=== PATIENT | male | born 1980 | race African-American/Black ===

== ENCOUNTER 2017-02-14 21:35 | Inpatient (IN) | payer MEDICARE ==
--- NOTE | 2017-02-14 22:43 | ED ---
Psych HPI - General Chief Complaint: Psychiatric Symptoms Stated Complaint: Mental Health Time Seen by Provider: 02/14/17 21:35 Source: patient, police, RN notes reviewed Mode of arrival: EMS - History of Present Illness Initial Comments: this is a 36-year-old male who was brought in by police for evaluation of abnormal behavior. He is brought in by police for erratic driving. The patient was confused and had no idea where he was or how he got here. He is from the [place] area. Please apparently contacted the patient's family who stated he is probably off his medications again. Patient was demonstrating flight of ideas some early threatening responses. No reports of fevers chills nausea vomiting sweats or trauma. A petition was filed by the police. MD Complaint: altered mental status - Related Data Allergies Allergy/AdvReac Type Severity Reaction Status Date / Time No Known Allergies Allergy Verified 02/14/17 21:41 Review of Systems ROS Statement: Those systems with pertinent positive or pertinent negative responses have been documented in the HPI. ROS Other: All systems not noted in ROS Statement are negative. Limitations: ROS unobtainable due to patients medical condition Past Medical History Past Medical History: Unable to Obtain History of Any Multi-Drug Resistant Organisms: Unobtainable Past Surgical History: Unable to Obtain Past Psychological History: Unable to Obtain Smoking Status: Unknown if ever smoked Past Alcohol Use History: Unable to Obtain Past Drug Use History: Unable to Obtain General Exam - General Exam Comments Initial Comments: this is a well-developed well-nourished obese appearing male he is demonstrated flight of ideas and does not give a cogent answers to questions Limitations: no limitations General appearance: alert, anxious Head exam: Present: atraumatic, normocephalic, normal inspection Eye exam: Present: normal appearance, PERRL, EOMI. Absent: scleral icterus, conjunctival injection, periorbital swelling ENT exam: Present: normal exam, mucous membranes moist Neck exam: Present: normal inspection. Absent: tenderness, meningismus, lymphadenopathy Respiratory exam: Present: normal lung sounds bilaterally. Absent: respiratory distress, wheezes, rales, rhonchi, stridor Cardiovascular Exam: Present: regular rate, normal rhythm, normal heart sounds. Absent: systolic murmur, diastolic murmur, rubs, gallop, clicks GI/Abdominal exam: Present: soft, normal bowel sounds. Absent: distended, tenderness, guarding, rebound, rigid Extremities exam: Present: normal inspection, full ROM, normal capillary refill. Absent: tenderness, pedal edema, joint swelling, calf tenderness Back exam: Present: normal inspection Neurological exam: Present: alert, altered, CN II-XII intact, normal gait. Absent: motor sensory deficit Psychiatric exam: Present: anxious, manic, other (patient is demonstrating flight of ideas) Skin exam: Present: warm, dry, intact, normal color. Absent: rash Course Vital Signs 02/14/17 21:37 Temperature 99.1 F Pulse Rate 95 Respiratory 16 Rate Blood Pressure 146/96 O2 Sat by Pulse 97 Oximetry - Reevaluation(s) Reevaluation #1: 02/15/17 00:18 I did fill out a physician clinical certification on the patient. The patient' s care will be endorsed to Dr. Morataya who will make the final disposition Medical Decision Making - Lab Data Result diagrams: 02/14/17 23:55 Lab Results 02/14/17 02/14/17 Range/Units 23:00 23:55 WBC 10.5 (3.8-10.6) k/uL RBC 4.95 (4.30-5.90) m/uL Hgb 14.8 (13.0-17.5) gm/dL Hct 42.5 (39.0-53.0) % MCV 85.9 (80.0-100.0) fL MCH 29.9 (25.0-35.0) pg MCHC 34.8 (31.0-37.0) g/dL RDW 13.0 (11.5-15.5) % Plt Count 151 (150-450) k/uL Neutrophils % 59 % Lymphocytes % 27 % Monocytes % 5 % Eosinophils % 7 % Basophils % 0 % Neutrophils # 6.2 (1.3-7.7) k/uL Lymphocytes # 2.8 (1.0-4.8) k/uL Monocytes # 0.5 (0-1.0) k/uL Eosinophils # 0.8 H (0-0.7) k/uL Basophils # 0.0 (0-0.2) k/uL Urine Opiates Screen Not Detected (NotDetected) Ur Oxycodone Screen Not Detected (NotDetected) Urine Methadone Screen Not Detected (NotDetected) Ur Propoxyphene Screen Not Detected (NotDetected) Ur Barbiturates Screen Not Detected (NotDetected) U Tricyclic Antidepress Not Detected (NotDetected) Ur Phencyclidine Scrn Not Detected (NotDetected) Ur Amphetamines Screen Not Detected (NotDetected) U Methamphetamines Scrn Not Detected (NotDetected) U Benzodiazepines Scrn Not Detected (NotDetected) Urine Cocaine Screen Not Detected (NotDetected) U Marijuana (THC) Screen Detected H (NotDetected) Disposition Clinical Impression: Acute psychosis Referrals: None,Stated [Primary Care Provider] - 1-2 days
[2017-02-15 00:06] LABS: Basophils % (A) 0 %; CH 29.1; Eosinophils # (A) 0.8 k/uL (0-0.7); Eosinophils % (A) 7 %; HCT 42.5 % (39.0-53.0); HDW 2.46; HGB 14.8 gm/dL (13.0-17.5); Luc % (Auto) 2; Lymphocytes # (A) 2.8 k/uL (1.0-4.8); Lymphocytes % (A) 27 %; MCH 29.9 pg (25.0-35.0); MCHC 34.8 g/dL (31.0-37.0); MCV 85.9 fL (80.0-100.0); Mean Platelet Volume 9.7; Monocytes # (A) 0.5 k/uL (0-1.0); Monocytes % (A) 5 %; Neutrophils # (A) 6.2 k/uL (1.3-7.7); Neutrophils % (A) 59 %; RBC 4.95 m/uL (4.30-5.90); WBC 10.5 k/uL (3.8-10.6); WBC (Perox) 9.86
[2017-02-15 00:18] LABS: ALT 45 U/L (21-72); AST 36 U/L (17-59); Alkaline Phosphatase 93 U/L (38-126); Anion Gap 16 mmol/L; Blood Urea Nitrogen 22 mg/dL (9-20); Calcium 9.8 mg/dL (8.4-10.2); Carbon Dioxide 23 mmol/L (22-30); Chloride 101 mmol/L (98-107); Glucose 120 mg/dL (74-99); Non-African American GFR(MDRD) 53 (>60 ml/min/1.73 sqM); Potassium 4.4 mmol/L (3.5-5.1); Sodium 140 mmol/L (137-145); Total Bilirubin 1.5 mg/dL (0.2-1.3)
[2017-02-15] MEDS ORDERED: HALOPERIDOL LACTATE 5 MG/ML 1 ML VIAL IM STA (07:06)
[2017-02-15] MEDS ORDERED: LORazepam 2 MG/ML SYRINGE IM STA (07:07)
[2017-02-15] MEDS ORDERED: MAG HYDROX/AL HYDROX/SIMETH 30 ML CUP PO PRN (16:02)
[2017-02-15] MEDS ORDERED: LORazepam 1 MG TAB PO PRN (16:02)
[2017-02-15] MEDS ORDERED: MAGNESIUM HYDROXIDE 2,400 MG/10 ML CUP PO PRN (16:02)
[2017-02-15] MEDS ORDERED: ACETAMINOPHEN TAB 325 MG TAB PO PRN (16:02)
[2017-02-15] MEDS ORDERED: LORazepam 2 MG/ML SYRINGE IM PRN (16:05)
[2017-02-15] MEDS: NICOTINE 14MG/24HR PATCH TRANSDERM SCH (16:17)
[2017-02-15] MEDS ORDERED: ZIPRASIDONE 20 MG VIAL IM ONE (16:35)
[2017-02-15] MEDS ORDERED: WATER FOR INJECTION, STERILE 10 ML IV ONE (16:35)
[2017-02-15] MEDS: ZIPRASIDONE 20 MG VIAL IM PRN (16:41)
[2017-02-15] MEDS: PROPRANOLOL 10 MG TAB PO SCH (21:06)
[2017-02-16] MEDS ORDERED: WATER FOR INJECTION, STERILE 10 ML IV ONE (08:09)
[2017-02-16] MEDS ORDERED: ZIPRASIDONE 20 MG VIAL IM ONE (08:09)
[2017-02-16] MEDS: ZIPRASIDONE 20 MG VIAL IM PRN (08:10)
[2017-02-16] MEDS ORDERED: LORazepam 2 MG/ML SYRINGE IM PRN (08:51)
[2017-02-16] MEDS ORDERED: PALIPERIDONE 3 MG TAB.ER.24 PO SCH (09:00)
[2017-02-16] MEDS ORDERED: ZIPRASIDONE 20 MG VIAL IM PRN ×2 (09:02→13:48)
--- NOTE | 2017-02-16 09:02 | P.HP ---
Psychiatric H&P - . H&P Date: 02/16/17 History & Physical: DATE OF SERVICE: 02/16/2017 IDENTIFYING DATA: This patient is a 36-year-old single -[place] male who was admitted to the mental health unit through emergency room after being brought in by the police on a petition.. HISTORY OF PRESENT ILLNESS: The patient patient was noted to be driving erratically police stopped him, patient was unable to make any sense they petitioned and brought him in. He continued to have difficulty in the emergency room unable to make sense people were reporting that he was trying to hand something to them but there was nothing in his hand. He was speaking about Arjun can candy covered raindrops. He was eventually admitted to our unit after there were no beds found in [facility]. Patient has a history of schizophrenia versus schizoaffective disorder bipolar type, father reports that he has been off of his meds for 2 months now. Father also reported that he had taken a vacation and gone to [place] and was also admitted there. Father reports patient takes Depakote amlodipine and an injection. Patient has already required 2 doses of Geodon 20 mg IM and 2 doses of Ativan 1 mg each. Today he came out of his room with soap on his face stating that he is God, he was in the dining christian and he was observed by junior technical writer that he was talking loudly but not threatening anybody. PAST PSYCHIATRIC HISTORY: Father reports multiple psychiatric admissions, unknown of all the medications that patient has been tried on.. PAST MEDICAL HISTORY: Obesity. ALLERGIES: [No known drug allergies]. CHEMICAL DEPENDENCY HISTORY: Unknown at this time patient is unable to give history. FAMILY PSYCHIATRIC HISTORY: Unknown at this time patient is unable to give history. FAMILY CHEMICAL DEPENDENCY HISTORY: Unknown. LEGAL HISTORY: Other reports there are no legal problems. 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 He currently lives with his father in [place]. He will return to live with his father once he is stable. MENTAL STATUS EXAM: Limited mental status exam patient is awake and alert and oriented to person only. Speech is loud increased rate production, pressured speech. Patient is exhibiting loose association, and flight of ideas. His thought process is tangential at best. Patient is grandiose. No suicidal ideation STRENGTHS: Has housing, father is supportive.. WEAKNESSES: Noncompliance with care. IMPRESSIONS: Patient with history of schizophrenia versus schizoaffective disorder bipolar, with this presentation today he is. Appearing schizoaffective with bipolar. He is psychotic, delusional, grandiose. No evidence that he is suicidal, but due to his psychosis and grandiosity he is a danger to self and others inadvertently Schizoaffective disorder, bipolar, MRE manic Noncompliance with care Cannabis use disorder, moderate PLAN: Continue inpatient psychiatric admission, for safety and for treatment. Will restart by mouth in vague, and verified that it was in vague that he was receiving before. It's been more than a month so if in vague it is the medication will need to restart with a loading dose. Increase the when necessary dose of Ativan to 2 mg every 4 for agitation Continue to provide when necessary Geodon until patient is under control. Restart Depakote. Social work to begin process of discharge planning and outpatient care with father. At present you therapy is not recommended.. Allergies Allergy/AdvReac Type Severity Reaction Status Date / Time No Known Allergies Allergy Verified 02/15/17 09:36 Vital Signs Temp 97.7 F 02/16/17 06:39 Pulse 77 02/16/17 06:39 Resp 22 02/16/17 06:39 BP 135/80 02/16/17 06:39 Pulse Ox 97 02/15/17 16:21 Laboratory Last Values WBC 10.5 k/uL (3.8-10.6) 02/14/17 23:55 RBC 4.95 m/uL (4.30-5.90) 02/14/17 23:55 Hgb 14.8 gm/dL (13.0-17.5) 02/14/17 23:55 Hct 42.5 % (39.0-53.0) 02/14/17 23:55 MCV 85.9 fL (80.0-100.0) 02/14/17 23:55 MCH 29.9 pg (25.0-35.0) 02/14/17 23:55 MCHC 34.8 g/dL (31.0-37.0) 02/14/17 23:55 RDW 13.0 % (11.5-15.5) 02/14/17 23:55 Plt Count 151 k/uL (150-450) 02/14/17 23:55 Neutrophils % 59 % 02/14/17 23:55 Lymphocytes % 27 % 02/14/17 23:55 Monocytes % 5 % 02/14/17 23:55 Eosinophils % 7 % 02/14/17 23:55 Basophils % 0 % 02/14/17 23:55 Neutrophils # 6.2 k/uL (1.3-7.7) 02/14/17 23:55 Lymphocytes # 2.8 k/uL (1.0-4.8) 02/14/17 23:55 Monocytes # 0.5 k/uL (0-1.0) 02/14/17 23:55 Eosinophils # 0.8 k/uL (0-0.7) H 02/14/17 23:55 Basophils # 0.0 k/uL (0-0.2) 02/14/17 23:55 Sodium 140 mmol/L (137-145) 02/14/17 23:55 Potassium 4.4 mmol/L (3.5-5.1) 02/14/17 23:55 Chloride 101 mmol/L (98-107) 02/14/17 23:55 Carbon Dioxide 23 mmol/L (22-30) 02/14/17 23:55 Anion Gap 16 mmol/L 02/14/17 23:55 BUN 22 mg/dL (9-20) H 02/14/17 23:55 Creatinine 1.50 mg/dL (0.66-1.25) H 02/14/17 23:55 Est GFR (MDRD) Af Amer >60 (>60 ml/min/1.73 sqM) 02/14/17 23:55 Est GFR (MDRD) Non-Af 53 (>60 ml/min/1.73 sqM) 02/14/17 23:55 Glucose 120 mg/dL (74-99) H 02/14/17 23:55 Calcium 9.8 mg/dL (8.4-10.2) 02/14/17 23:55 Total Bilirubin 1.5 mg/dL (0.2-1.3) H 02/14/17 23:55 AST 36 U/L (17-59) 02/14/17 23:55 ALT 45 U/L (21-72) 02/14/17 23:55 Alkaline Phosphatase 93 U/L (38-126) 02/14/17 23:55 Total Protein 8.0 g/dL (6.3-8.2) 02/14/17 23:55 Albumin 5.2 g/dL (3.5-5.0) H 02/14/17 23:55 Urine Opiates Screen Not Detected (NotDetected) 02/14/17 23:00 Ur Oxycodone Screen Not Detected (NotDetected) 02/14/17 23:00 Urine Methadone Screen Not Detected (NotDetected) 02/14/17 23:00 Ur Propoxyphene Screen Not Detected (NotDetected) 02/14/17 23:00 Ur Barbiturates Screen Not Detected (NotDetected) 02/14/17 23:00 Valproic Acid <10.0 ug/mL 02/14/17 23:55 U Tricyclic Antidepress Not Detected (NotDetected) 02/14/17 23:00 Ur Phencyclidine Scrn Not Detected (NotDetected) 02/14/17 23:00 Ur Amphetamines Screen Not Detected (NotDetected) 02/14/17 23:00 U Methamphetamines Scrn Not Detected (NotDetected) 02/14/17 23:00 U Benzodiazepines Scrn Not Detected (NotDetected) 02/14/17 23:00 Urine Cocaine Screen Not Detected (NotDetected) 02/14/17 23:00 U Marijuana (THC) Screen Detected (NotDetected) H 02/14/17 23:00 02/16/17 08:52
[2017-02-16] MEDS: NICOTINE 14MG/24HR PATCH TRANSDERM SCH (09:28)
[2017-02-16] MEDS: PROPRANOLOL 10 MG TAB PO SCH ×2 (09:28→21:44)
[2017-02-16 10:05] LABS: Basophils # (A) 0.1 k/uL (0-0.2); Basophils % (A) 1 %; CH 28.8; CHCM 33.9; Eosinophils # (A) 0.5 k/uL (0-0.7); Eosinophils % (A) 7 %; HCT 41.2 % (39.0-53.0); HDW 2.59; HGB 14.4 gm/dL (13.0-17.5); Luc # (Auto) 0.15; Luc % (Auto) 2; Lymphocytes % (A) 29 %; MCH 29.7 pg (25.0-35.0); MCHC 34.8 g/dL (31.0-37.0); MCV 85.3 fL (80.0-100.0); Mean Platelet Volume 9.7; Monocytes # (A) 0.5 k/uL (0-1.0); Monocytes % (A) 8 %; Neutrophils # (A) 3.6 k/uL (1.3-7.7); Neutrophils % (A) 54 %; RBC 4.83 m/uL (4.30-5.90); RDW 12.7 % (11.5-15.5); WBC 6.8 k/uL (3.8-10.6); WBC (Perox) 6.56
[2017-02-16 10:21] LABS: ALT 38 U/L (21-72); AST 34 U/L (17-59); Alkaline Phosphatase 77 U/L (38-126); Anion Gap 11 mmol/L; Blood Urea Nitrogen 18 mg/dL (9-20); Calcium 9.8 mg/dL (8.4-10.2); Carbon Dioxide 27 mmol/L (22-30); Chloride 102 mmol/L (98-107); Glucose 93 mg/dL (74-99); Non-African American GFR(MDRD) >60 (>60 ml/min/1.73 sqM); Potassium 4.1 mmol/L (3.5-5.1); Sodium 140 mmol/L (137-145); Total Bilirubin 0.8 mg/dL (0.2-1.3); Total Protein 7.7 g/dL (6.3-8.2)
--- NOTE | 2017-02-16 13:04 | P.PN ---
Progress Note - Text Patient is inappropriate for medical evaluation at this point.
[2017-02-16] MEDS ORDERED: DIAZEPAM 5 MG/ML 2 ML SYRINGE IM STA (15:02)
[2017-02-16] MEDS ORDERED: OLANZapine ODT 10 MG TAB PO STA (19:07)
[2017-02-16] MEDS ORDERED: DIVALPROEX ER 500 MG TAB.ER.24H PO SCH (21:00)
[2017-02-16] MEDS ORDERED: DIAZEPAM 5 MG/ML 2 ML SYRINGE IM ONE (21:11)
[2017-02-16] MEDS ORDERED: HALOPERIDOL LACTATE 5 MG/ML 1 ML VIAL IM STA (21:11)
[2017-02-17] MEDS ORDERED: DIAZEPAM 5 MG/ML 2 ML SYRINGE IM PRN
[2017-02-17] MEDS ORDERED: PALIPERIDONE IM 234 MG/1.5 ML SYG IM STA (07:49)
--- NOTE | 2017-02-17 07:56 | P.PN ---
Progress Note - Text INTERVERAL HISTORY: Received report from RN, patient received Haldol 5 mg IM, Valium 10 mg IM at 9 PM, he slept for almost 6 hours, he he woke around 3 and began to agitate flexing muscles being loud, Haldol 5 mg IM, Valium 10 mg IM given at 357 patient went back to bed and slept until 6:30. Was not loud or threatening but he was psychotic RN stated he was not making any sense. MENTAL STATUS EXAM: Limited mental status exam patient is awake and alert and oriented to person only. Speech is normal volume, pressured,+ loose association , and flight of ideas. His thought process is tangential at best. Patient is grandiose. No suicidal ideation IMPRESSIONS: Patient with schizoaffective disorder bipolar, manic with psychosis. Has been needing medication restraint. Continue psychotic, delusional, grandiose. No evidence that he is suicidal, but due to his psychosis and grandiosity he is a danger to self and others inadvertently Schizoaffective disorder, bipolar, MRE manic, psychotic Noncompliance with care Cannabis use disorder, moderate PLAN:Continue inpatient psychiatric hospitalization. EKG done, due to the amount of anitpsychotics given IM. Will increase Invega by mouth 9 mg today, begin Invega sustena today, add kody
[2017-02-17] MEDS: NICOTINE 14MG/24HR PATCH TRANSDERM SCH (09:15)
[2017-02-17] MEDS: PROPRANOLOL 10 MG TAB PO SCH ×2 (09:15→20:26)
[2017-02-17] MEDS: PALIPERIDONE 3 MG TAB.ER.24 PO SCH (09:15)
[2017-02-17] MEDS: BENZTROPINE 2 MG/2 ML AMP IM SCH ×2 (09:16→20:26)
[2017-02-17] MEDS ORDERED: DIVALPROEX ER 500 MG TAB.ER.24H PO ONE (12:15)
[2017-02-17] MEDS ORDERED: LORazepam 2 MG/ML SYRINGE IM PRN (15:57)
[2017-02-17] MEDS ORDERED: HALOPERIDOL LACTATE 5 MG/ML 1 ML VIAL IM PRN ×2 (15:59)
--- NOTE | 2017-02-17 19:34 | P.CONS ---
History of Present Illness - Reason for Consult Consult date: 02/17/17 Medical evaluation - History of Present Illness This is a 36-year-old gentleman with no current PCP, when he was inquired about who his regular doctor is he said he is his own PCP, apparently he also shown that he has an M.D. in the [employer] 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 Patient was revisited today as during his admission he was inappropriate for medical interview. Patient has police escort during my medical interview with him and he is pleasant he has racing thoughts and rapid speech patient denies any physical elements, not on any maintenance medications for his medical problems in the past, however he he mentions asthma and hypertension Review of Systems Constitutional: Reports as per HPI, Denies anorexia, Denies chills, Denies chronic headaches, Denies chronic pain, Denies daytime sleepiness, Denies fatigue, Denies fever, Denies lethargy, Denies malaise, Denies night sweats, Denies poor appetite, Denies sweats, Denies weakness, Denies weight gain, Denies weight loss Ears, nose, mouth and throat: Reports as per HPI, Denies ant. neck pain, Denies bleeding gums, Denies dental pain, Denies dysphagia, Denies epistaxis, Denies headache, Denies hoarseness, Denies mouth pain, Denies nasal congestion, Denies nasal discharge, Denies neck fullness/pressure, Denies neck lump, Denies nose pain, Denies odynophagia, Denies post-nasal drip, Denies sinus pain, Denies sinus pressure, Denies swelling in mouth, Denies swelling in throat, Denies sore throat, Denies vertigo, Denies voice changes Cardiovascular: Reports as per HPI, Denies chest pain, Denies claudication, Denies decreased exercise tolerance, Denies dyspnea on exertion, Denies edema, Denies high blood pressure, Denies irregular heart beat, Denies leg edema, Denies lightheadedness, Denies orthopnea, Denies palpitations, Denies paroxysmal nocturnal dyspnea, Denies phlebitis, Denies rapid heart beat, Denies shortness of breath, Denies syncope Respiratory: Reports as per HPI, Denies congestion, Denies cough, Denies cough with sputum, Denies dyspnea, Denies excessive sputum, Denies hemoptysis, Denies home oxygen, Denies pain, Denies pain on inspiration, Denies pleurisy, Denies respiratory infections, Denies sleep apnea, Denies snoring, Denies wheezing Genitourinary: Reports as per HPI, Denies decreased libido, Denies difficulties fathering child, Denies discharge, Denies dysuria, Denies erectile dysfunction, Denies flank pain, Denies genital pain, Denies genital sores, Denies hematuria, Denies impotence, Denies incontinence, Denies kidney stones, Denies nocturia, Denies polyuria, Denies testicular lump, Denies testicular pain, Denies urinary frequency, Denies urinary hesitancy, Denies urinary retention Musculoskeletal: Reports as per HPI, Denies arm numbness/tingling, Denies atrophy, Denies fractures, Denies frequent falls, Denies gait dysfunction, Denies hot joints, Denies leg numbness/tingling, Denies limitation of motion, Denies loss of height, Denies low back pain, Denies morning stiffness, Denies muscle cramps, Denies muscle weakness, Denies myalgias, Denies neck pain, Denies neck stiffness, Denies prior amputations, Denies redness of joints, Denies shooting arm pain, Denies shooting leg pain Integumentary: Reports as per HPI, Denies acne, Denies boils, Denies brittle nails, Denies change in hair/nails, Denies color changes, Denies darkening of skin, Denies depigmentation, Denies dryness, Denies foot/leg ulcers, Denies growths, Denies hirsutism, Denies lesions, Denies onychomycosis, Denies pruritus , Denies rash, Denies sores, Denies striae, Denies unusual bruising, Denies wounds Neurological: Reports as per HPI, Denies aphasia, Denies ataxia, Denies balance difficulties, Denies burning pain, Denies change in mentation, Denies change in smell/taste, Denies change in speech, Denies confusion, Denies convulsions, Denies double vision, Denies gait dysfunction, Denies head injury, Denies headaches, Denies hearing difficulties, Denies lack of coordination, Denies loss of vision, Denies memory loss, Denies migraines, Denies motor disturbance, Denies numbness, Denies paralysis, Denies paresthesias, Denies seizures, Denies sensory deficit, Denies spasticity, Denies syncope, Denies tic, Denies tingling , Denies transient paralysis, Denies tremors, Denies vertigo, Denies weakness, Denies visual changes Psychiatric: Reports as per HPI, Reports change in sleep habits, Reports disorientation, Reports hallucinations, Reports irritability, Reports mood swings, Reports sleep disturbances Endocrine: Reports as per HPI, Denies cold intolerance, Denies deepening of the voice, Denies excessive sweating, Denies excessive thirst, Denies fatigue, Denies flushing, Denies heat intolerance, Denies high blood sugars, Denies increase in ring/shoe/hat size, Denies low blood sugars, Denies nocturia, Denies palpitations, Denies polydipsia, Denies polyphagia, Denies polyuria, Denies proptosis, Denies recent glucocorticoid use, Denies thyroid mass, Denies weight change Hematologic/Lymphatic: Reports as per HPI Allergic/Immunologic: Reports as per HPI, Denies allergic rhinitis, Denies anaphylaxis, Denies angioedema, Denies gluten intolerance, Denies persistent infections, Denies seasonal allergies, Denies urticaria, Denies wheezing Past Medical History Past Medical History: Asthma History of Any Multi-Drug Resistant Organisms: Unobtainable Past Surgical History: Orthopedic Surgery (14 and 19. After laceration right side) Past Anesthesia/Blood Transfusion Reactions: No Reported Reaction Past Psychological History: Unable to Obtain Smoking Status: Never smoker (However he smokes marijuana) Past Alcohol Use History: None Reported Past Drug Use History: Marijuana - Past Family History Father Family Medical History: No Reported History Mother Family Medical History: Coronary Artery Disease (CAD), Hypertension Brother(s) Family Medical History: Coronary Artery Disease (CAD) Sister(s) Family Medical History: No Reported History Medications and Allergies Home Medications Medication Instructions Recorded Confirmed Type Propranolol [Inderal] 10 mg PO BID 02/15/17 02/15/17 History Allergies Allergy/AdvReac Type Severity Reaction Status Date / Time No Known Allergies Allergy Verified 02/15/17 09:36 Physical Exam Vitals: Vital Signs Temp Pulse Pulse Pulse Resp BP BP 02/17/17 09:29 89 20 132/72 02/17/17 03:50 97.6 F 71 16 144/74 02/16/17 22:48 92 02/16/17 21:40 88 137/66 02/16/17 16:02 99 16 100/54 BP Pulse Ox 02/17/17 09:29 02/17/17 03:50 95 02/16/17 22:48 128/62 02/16/17 21:40 02/16/17 16:02 - Constitutional General appearance: cooperative, no acute distress - EENT Eyes: anicteric sclerae, EOMI, dentition normal, normal appearance - Neck Neck: no lymphadenopathy, normal ROM, no other, no rigidity, no stridor, no thyromegaly - Respiratory Respiratory: bilateral: CTA - Cardiovascular Rhythm: regular Heart sounds: normal: S1, S2 Abnormal Heart Sounds: no systolic murmur, no diastolic murmur, no rub, no S3 Gallop, no S4 Gallop, no click, no other - Gastrointestinal General gastrointestinal: normal bowel sounds, soft - Integumentary Integumentary: normal, normal turgor - Neurologic Neurologic: CNII-XII intact - Musculoskeletal Musculoskeletal: gait normal, strength equal bilaterally - Psychiatric Psychiatric: A&O x's 3 Results CBC & Chem 7: 02/16/17 09:47 02/16/17 09:47 Labs: Laboratory Results WBC 6.8 k/uL (3.8-10.6) 02/16/17 09:47 RBC 4.83 m/uL (4.30-5.90) 02/16/17 09:47 Hgb 14.4 gm/dL (13.0-17.5) 02/16/17 09:47 Hct 41.2 % (39.0-53.0) 02/16/17 09:47 MCV 85.3 fL (80.0-100.0) 02/16/17 09:47 MCH 29.7 pg (25.0-35.0) 02/16/17 09:47 MCHC 34.8 g/dL (31.0-37.0) 02/16/17 09:47 RDW 12.7 % (11.5-15.5) 02/16/17 09:47 Plt Count 151 k/uL (150-450) 02/16/17 09:47 Neutrophils % 54 % 02/16/17 09:47 Lymphocytes % 29 % 02/16/17 09:47 Monocytes % 8 % 02/16/17 09:47 Eosinophils % 7 % 02/16/17 09:47 Basophils % 1 % 02/16/17 09:47 Neutrophils # 3.6 k/uL (1.3-7.7) 02/16/17 09:47 Lymphocytes # 2.0 k/uL (1.0-4.8) 02/16/17 09:47 Monocytes # 0.5 k/uL (0-1.0) 02/16/17 09:47 Eosinophils # 0.5 k/uL (0-0.7) 02/16/17 09:47 Basophils # 0.1 k/uL (0-0.2) 02/16/17 09:47 Sodium 140 mmol/L (137-145) 02/16/17 09:47 Potassium 4.1 mmol/L (3.5-5.1) 02/16/17 09:47 Chloride 102 mmol/L (98-107) 02/16/17 09:47 Carbon Dioxide 27 mmol/L (22-30) 02/16/17 09:47 Anion Gap 11 mmol/L 02/16/17 09:47 BUN 18 mg/dL (9-20) 02/16/17 09:47 Creatinine 1.27 mg/dL (0.66-1.25) H 02/16/17 09:47 Est GFR (MDRD) Af Amer >60 (>60 ml/min/1.73 sqM) 02/16/17 09:47 Est GFR (MDRD) Non-Af >60 (>60 ml/min/1.73 sqM) 02/16/17 09:47 Glucose 93 mg/dL (74-99) 02/16/17 09:47 Calcium 9.8 mg/dL (8.4-10.2) 02/16/17 09:47 Total Bilirubin 0.8 mg/dL (0.2-1.3) 02/16/17 09:47 AST 34 U/L (17-59) 02/16/17 09:47 ALT 38 U/L (21-72) 02/16/17 09:47 Alkaline Phosphatase 77 U/L (38-126) 02/16/17 09:47 Total Protein 7.7 g/dL (6.3-8.2) 02/16/17 09:47 Albumin 4.8 g/dL (3.5-5.0) 02/16/17 09:47 TSH 1.050 mIU/L (0.465-4.680) 02/16/17 09:47 Urine Opiates Screen Not Detected (NotDetected) 02/14/17 23:00 Ur Oxycodone Screen Not Detected (NotDetected) 02/14/17 23:00 Urine Methadone Screen Not Detected (NotDetected) 02/14/17 23:00 Ur Propoxyphene Screen Not Detected (NotDetected) 02/14/17 23:00 Ur Barbiturates Screen Not Detected (NotDetected) 02/14/17 23:00 Valproic Acid <10.0 ug/mL 02/14/17 23:55 U Tricyclic Antidepress Not Detected (NotDetected) 02/14/17 23:00 Ur Phencyclidine Scrn Not Detected (NotDetected) 02/14/17 23:00 Ur Amphetamines Screen Not Detected (NotDetected) 02/14/17 23:00 U Methamphetamines Scrn Not Detected (NotDetected) 02/14/17 23:00 U Benzodiazepines Scrn Not Detected (NotDetected) 02/14/17 23:00 Urine Cocaine Screen Not Detected (NotDetected) 02/14/17 23:00 U Marijuana (THC) Screen Detected (NotDetected) H 02/14/17 23:00 EKG reviewed no normal sinus rhythm without any acute ST-T wave changes no QT prolongation LVH noted Assessment and Plan Plan: 1. Confabulation with loose association, schizoaffective disorder with bipolar , MR in manic psychotic as noted by psychiatrist, patient has an EKG which is unremarkable for any QT prolongation, patient's receiving antipsychotics by IM, and with proceeding in [place] [facility] 2. Asthma without any exacerbation 3. LVH noted on chest x-ray patient has individual compliance again was recommended 4. History of cannabis use 5. 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
[2017-02-17] MEDS: DIVALPROEX ER 500 MG TAB.ER.24H PO SCH (20:26)
[2017-02-18] MEDS: BENZTROPINE 2 MG/2 ML AMP IM SCH (08:43)
[2017-02-18] MEDS: NICOTINE 14MG/24HR PATCH TRANSDERM SCH (08:43)
[2017-02-18] MEDS: PROPRANOLOL 10 MG TAB PO SCH ×2 (08:44→21:10)
[2017-02-18] MEDS: PALIPERIDONE 3 MG TAB.ER.24 PO SCH (08:44)
[2017-02-18] MEDS ORDERED: LORazepam 1 MG TAB PO PRN (13:59)
--- NOTE | 2017-02-18 15:48 | P.PN ---
Progress Note - Text INTERVERAL HISTORY: Discussed patient with staff, security was removed last night at midnight. 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 He continues with psychotic behavior however he has been more appropriate, there has not been loud or aggressive behavior. He has not had any recent injections of Haldol, however he did have an injection of Ativan at 3 AM this morning. He is tolerating Depakote that was increased last night EKG done this morning and normal sinus rhythm QTC 400/470, at this is a slight increase from the day before but within normal limits. MENTAL STATUS EXAM: awake and alert and oriented to person only, Speech is normal volume, at times he still becomes loud, still with psychosis, grandiose ideas having to M.D. degrees working for the [employer]. Continues with pressured speech but less often + loose association, and flight of ideas. His thought process is tangential at best. Patient is grandiose. No suicidal ideation IMPRESSIONS: Patient with schizoaffective disorder bipolar, manic with psychosis. Has responded to medication restraint. Continue psychotic, delusional, grandiose. No evidence that he is suicidal, but due to his psychosis and grandiosity he is a danger to self and others inadvertently Schizoaffective disorder, bipolar, MRE manic, psychotic Noncompliance with care Cannabis use disorder, moderate PLAN:Continue inpatient psychiatric hospitalization. Will repeat EKG tomorrow morning, if QTc is decreasing will be able to stop daily EKG if he does not get injection of Haldol. Continue Invega by mouth 9 mg today, Add by mouth Haldol and Ativan as a choice if patient refuses continued to use IM. Will add by mouth Cogentin if patient refuses give IM cogentin,
[2017-02-18] MEDS: DIVALPROEX ER 500 MG TAB.ER.24H PO SCH (21:10)
[2017-02-18] MEDS: BENZTROPINE MESYLATE 1 MG TAB PO SCH (21:10)
[2017-02-19] MEDS: NICOTINE 14MG/24HR PATCH TRANSDERM SCH (08:27)
[2017-02-19] MEDS: PALIPERIDONE 3 MG TAB.ER.24 PO SCH (08:27)
[2017-02-19] MEDS: PROPRANOLOL 10 MG TAB PO SCH ×2 (08:27→21:02)
[2017-02-19] MEDS: BENZTROPINE MESYLATE 1 MG TAB PO SCH ×2 (08:28→21:03)
--- NOTE | 2017-02-19 15:12 | P.PN ---
Progress Note - Text INTERVERAL HISTORY: Discussed patient with staff, no problems with 1:1. 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 He still has been sedated, no IM Haldol needed. He continues with psychotic behavior however he has been more appropriate, there has not been loud or aggressive behavior. He has not had any recent injections of Haldol, however he did have an injection of Ativan at 3 AM this morning. He is tolerating Depakote. EKG done today normal sinus rhythm QTC 394/450, slightly lower than yesterday. Can continue to use haldol PRN for agitation/psychosis. Possible hx of hallucinogenic use. MENTAL STATUS EXAM: awake and alert and oriented to person only, Speech is normal volume, has not been loud but still with psychosis, grandiose ideas having to M.D. degrees working for the [employer]. Continues with pressured speech but less often + loose association, and flight of ideas. His thought process is tangential. Patient is grandiose. No suicidal ideation IMPRESSIONS: Patient with schizoaffective disorder bipolar, manic with psychosis. Has responded to medication restraint. Continue psychotic, delusional, grandiose. No evidence that he is suicidal, but due to his psychosis and grandiosity he is a danger to self and others inadvertently Schizoaffective disorder, bipolar, MRE manic, psychotic Noncompliance with care Cannabis use disorder, moderate R/O Hallucinogenic use PLAN:Continue inpatient psychiatric hospitalization. If Haldol IM use will repeat EKG tomorrow morning, Continue Invega by mouth 9 mg today Add by mouth Haldol and Ativan as a choice if patient refuses continue to use IM. Will add by mouth Cogentin if patient refuses give IM cogentin,
[2017-02-19] MEDS: DIVALPROEX ER 500 MG TAB.ER.24H PO SCH (21:02)
[2017-02-20] MEDS: PALIPERIDONE 3 MG TAB.ER.24 PO SCH (08:36)
[2017-02-20] MEDS: BENZTROPINE MESYLATE 1 MG TAB PO SCH ×2 (08:36→21:05)
[2017-02-20] MEDS: PROPRANOLOL 10 MG TAB PO SCH ×2 (08:36→21:04)
[2017-02-20] MEDS: NICOTINE 14MG/24HR PATCH TRANSDERM SCH (08:36)
--- NOTE | 2017-02-20 10:40 | P.PN ---
Progress Note - Text INTERVERAL HISTORY: Discussed patient with staff, no problems with 1:1. Today patient was in the hallway, greeted me pleasant cooperative. Asked him how he was doing stated he was great, asked if it had been a rough few days, " no I've been fine it's the government" asked him what he meant by that he stated that he is in the asked him what unit and he said [facility] [place] him I didn't know what that stood for "[id number]" he asked me if I watched it I told him no he then began to go on a rambling convoluted description then he walked away. While walking away stated that medicines can work but you have to stop them so that the mind can work without them. Report that he is talking about needing 30 condoms/day, that he cannot feel his penis, animal physiology teacher stopped patient from continuing but staff report he has been focusing on sexual issues/ideas Has not been loud, but continues with psychotic, delusional material. He continues with psychotic behavior however he has been more appropriate, there has not been loud or aggressive behavior. He is tolerating Depakote. EKG done x 2 WNL. Possible hx of hallucinogenic use. Spoke to father today informing him that patient has not responded to Invega, explained we will need to try another medication. Will use Haldol Decanoate. MENTAL STATUS EXAM: awake and alert and oriented to person only, Speech is normal volume, has not been loud but still with psychosis, grandiose ideas having to M.D. degrees working for the [employer]. Now he states he is in the , with [employer], a TV show about . Continues with pressured speech but less often + loose association, and flight of ideas. His thought process is tangential. Patient is grandiose. No suicidal ideation IMPRESSIONS: Patient with schizoaffective disorder bipolar, manic with psychosis. Has responded to medication restraint, but continues to be psychotic, delusional , grandiose. He continues to need 1-1 No evidence that he is suicidal, but due to his psychosis and grandiosity he is a danger to self and others inadvertently No change in his psychosis, TP, delusions. Schizoaffective disorder, bipolar, MRE manic, psychotic Noncompliance with care Cannabis use disorder, moderate R/O Hallucinogenic use PLAN:Continue inpatient psychiatric hospitalization. D/c Invega by mouth 9 mg today Will use Haldol D, discussed with pharmacist, amount and will give 100mg. Add by mouth Haldol and Ativan as a choice if patient refuses continue to use IM. Cogentin PO, if patient refuses give IM cogentin,
[2017-02-20] MEDS ORDERED: HALOPERIDOL DECANOATE 100 MG/ML 1 ML VIAL IM STA (12:16)
[2017-02-20 13:15] LABS: Basophils % (A) 1 %; CH 29.1; CHCM 33.7; Eosinophils # (A) 0.4 k/uL (0-0.7); Eosinophils % (A) 6 %; HCT 41.6 % (39.0-53.0); HDW 2.49; HGB 14.3 gm/dL (13.0-17.5); Luc # (Auto) 0.15; Luc % (Auto) 2; Lymphocytes # (A) 2.1 k/uL (1.0-4.8); Lymphocytes % (A) 30 %; MCH 29.8 pg (25.0-35.0); MCHC 34.5 g/dL (31.0-37.0); MCV 86.5 fL (80.0-100.0); Mean Platelet Volume 9.5; Monocytes # (A) 0.4 k/uL (0-1.0); Monocytes % (A) 6 %; Neutrophils # (A) 3.7 k/uL (1.3-7.7); Neutrophils % (A) 55 %; RDW 12.6 % (11.5-15.5); WBC 6.8 k/uL (3.8-10.6); WBC (Perox) 6.31
[2017-02-20 13:25] LABS: ALT 32 U/L (21-72); AST 26 U/L (17-59); Alkaline Phosphatase 71 U/L (38-126); Anion Gap 11 mmol/L; Blood Urea Nitrogen 18 mg/dL (9-20); Calcium 9.8 mg/dL (8.4-10.2); Carbon Dioxide 25 mmol/L (22-30); Chloride 103 mmol/L (98-107); Glucose 93 mg/dL (74-99); Non-African American GFR(MDRD) >60 (>60 ml/min/1.73 sqM); Sodium 139 mmol/L (137-145); Total Bilirubin 0.6 mg/dL (0.2-1.3); Total Protein 7.3 g/dL (6.3-8.2)
[2017-02-20 13:38] LABS: Potassium 4.8 mmol/L (3.5-5.1)
[2017-02-20] MEDS: DOCUSATE 100 MG CAP PO SCH ×2 (14:20→21:05)
[2017-02-20] MEDS: DIVALPROEX ER 500 MG TAB.ER.24H PO SCH (21:04)
[2017-02-21] MEDS: DOCUSATE 100 MG CAP PO SCH ×2 (08:56→21:07)
[2017-02-21] MEDS: PROPRANOLOL 10 MG TAB PO SCH ×2 (08:56→21:07)
[2017-02-21] MEDS: NICOTINE 14MG/24HR PATCH TRANSDERM SCH (08:56)
[2017-02-21] MEDS: BENZTROPINE MESYLATE 1 MG TAB PO SCH ×2 (08:56→21:07)
--- NOTE | 2017-02-21 13:19 | P.PN ---
Progress Note - Text INTERVERAL HISTORY: Discussed patient at treatment team meeting, review of chart , met with patient. No problems reported by staff no need for when necessary meds for medical restraint. He continues with 1:1. Today patient was in his bedroom seated on the bed looking out the window. Reports that he is just relaxing. 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 video custodial kids. States "I need you to know where I'm coming from". Told patient that I spoke with his father yesterday, and that his father said that when he takes medicine he does well. Patient says "no medicines are bad for you, I either sleep to much eat too much I can't feel my orgasms medicines are bad for you, the medicines that we get here are bad they're not FDA." Has not been loud, but continues with psychotic, delusional material. He continues with psychotic behavior however he has been more appropriate, there has not been loud or aggressive behavior. He is tolerating Depakote. EKG done x 2 WNL. Possible hx of hallucinogenic use. MENTAL STATUS EXAM: awake and alert and oriented to person, place and year. Speech is normal volume, slight increased rate and production, not pressured but has a push to it. + loose association, and flight of ideas. His thought process is tangential. Patient is grandiose. No suicidal ideation IMPRESSIONS: Patient with schizoaffective disorder bipolar, manic with psychosis. Has responded to medication restraint, but continues to be psychotic, delusional , grandiose. He is not as loud nor as intrusive as before, will DC one to one now. No evidence that he is suicidal, but due to his psychosis and grandiosity he is a danger to self and others inadvertently No change in his psychosis, TP, delusions. Schizoaffective disorder, bipolar, MRE manic, psychotic Noncompliance with care Cannabis use disorder, moderate R/O Hallucinogenic use PLAN:Continue inpatient psychiatric hospitalization. Haldol D, discussed with pharmacist, gave 100mg yesterday Add by mouth Haldol and Ativan as a choice if patient refuses continue to use IM. Cogentin PO, if patient refuses give IM cogentin, Repeat EKG on
[2017-02-21] MEDS ORDERED: HALOPERIDOL 2 MG TAB PO PRN (13:22)
[2017-02-21] MEDS: DIVALPROEX ER 500 MG TAB.ER.24H PO SCH (21:07)
[2017-02-22] MEDS: NICOTINE 14MG/24HR PATCH TRANSDERM SCH (08:03)
[2017-02-22] MEDS: DOCUSATE 100 MG CAP PO SCH ×2 (08:03→20:55)
[2017-02-22] MEDS: PROPRANOLOL 10 MG TAB PO SCH ×2 (08:03→20:55)
[2017-02-22] MEDS: BENZTROPINE MESYLATE 1 MG TAB PO SCH ×2 (08:03→20:56)
[2017-02-22 08:31] VITALS: BMI 43.9
--- NOTE | 2017-02-22 15:03 | P.PN ---
Progress Note - Text INTERVERAL HISTORY: Discussed patient at treatment team meeting, review of chart , met with patient. No problems reported by staff, the one-to-one was discontinued yesterday and patient is doing fine no inappropriate behavior, no intrusiveness. As noted that today in group setting that he was appropriate and not talking about the sexual issues. Began to speak about discharge planning. Patient does not spontaneously report the delusions or the psychotic thoughts. Only when you ask him how he is doing it will spontaneously come up. Has not been loud, but continues with psychotic, delusional material. He continues with psychotic behavior however he has been more appropriate, there has not been loud or aggressive behavior. He is tolerating Depakote. EKG done x 2 WNL. Possible hx of hallucinogenic use. MENTAL STATUS EXAM: awake and alert and oriented to person, place and year. Speech is normal volume, slight increased rate and production, not pressured but has a push to it. + loose association, and flight of ideas. His thought process is tangential. Patient is grandiose. No suicidal ideation IMPRESSIONS: Patient with schizoaffective disorder bipolar, manic with psychosis. Has responded to medication restraint, but continues to be psychotic, delusional , grandiose. He is not as loud nor as intrusive as before, will DC one to one now. No evidence that he is suicidal, but due to his psychosis and grandiosity he is a danger to self and others inadvertently No change in his psychosis, TP, delusions. Sedated. No evidence of EPS, tardive dyskinesia Schizoaffective disorder, bipolar, MRE manic, psychotic Noncompliance with care Cannabis use disorder, moderate R/O Hallucinogenic use PLAN:Continue inpatient psychiatric hospitalization. Haldol and Ativan PRN agitation, Cogentin PO, Repeat EKG on SW spoke to father today father was unable to give us any concrete assessment if patient is at his baseline. Social work will try to contact patient's sister.
[2017-02-22] MEDS: DIVALPROEX ER 500 MG TAB.ER.24H PO SCH (20:56)
[2017-02-23] MEDS: PROPRANOLOL 10 MG TAB PO SCH ×2 (08:47→20:15)
[2017-02-23] MEDS: DOCUSATE 100 MG CAP PO SCH ×2 (08:47→20:15)
[2017-02-23] MEDS: NICOTINE 14MG/24HR PATCH TRANSDERM SCH (08:48)
[2017-02-23] MEDS: BENZTROPINE MESYLATE 1 MG TAB PO SCH ×2 (08:48→20:15)
--- NOTE | 2017-02-23 15:34 | P.PN ---
Progress Note - Text INTERVERAL HISTORY: Discussed patient at treatment team meeting, review of chart , met with patient. No problems reported by staff, no inappropriate behavior, no intrusiveness. SW spoke to father who was unable to provide any baseline for his son. Has not been loud, but continues with psychotic, delusional material. He continues with psychotic behavior, there has not been loud or aggressive behavior. He is tolerating Depakote. EKG done x 3 WNL. Todays was again WNL Possible hx of hallucinogenic use. MENTAL STATUS EXAM: awake and alert and oriented to person, place and year. Speech is normal volume, slight increased rate and production, not pressured but has a push to it. + loose association, and flight of ideas. His thought process is tangential. Patient is grandiose. No suicidal ideation IMPRESSIONS: Patient with schizoaffective disorder bipolar, manic with psychosis. 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 Has responded to medication restraint, but continues to be psychotic, delusional , grandiose. He is not as loud nor as intrusive as before. No evidence that he is suicidal, but due to his psychosis and grandiosity he is a danger to self and others inadvertently No change in his psychosis, TP, delusions. Sedated. No evidence of EPS, tardive dyskinesia. EKG is WNL Has tolerated the Haldol Dec IM 100mg, but no impact on psychosis. Schizoaffective disorder, bipolar, MRE manic, psychotic Noncompliance with care Cannabis use disorder, moderate R/O Hallucinogenic use PLAN:Continue inpatient psychiatric hospitalization for safety and treatment. Haldol and Ativan PRN agitation, Cogentin PO, If no response by Monday will give Haldol D 50mg. SW will try to speak to another family member who might be able to give more information on patient's baseline.
[2017-02-23 16:00] LABS: Appearance,Urine Clear (Clear); Bilirubin,Urine Negative (Negative); Glucose,Urine (UA) Negative (Negative); Ketones,Urine 1+ (Negative); Leukocyte Esterase,Urine Negative (Negative); Nitrite,Urine Negative (Negative); PH, Urine 6.5 (5.0-8.0); Protein,Urine Negative (Negative); Specific Gravity,Urine 1.018 (1.001-1.035); UA Billing (MACRO vs. MICRO) CHEM; Urobilinogen,Urine <2.0 mg/dL (<2.0)
[2017-02-23] MEDS: DIVALPROEX ER 500 MG TAB.ER.24H PO SCH (20:15)
[2017-02-24] MEDS: NICOTINE 14MG/24HR PATCH TRANSDERM SCH (08:10)
[2017-02-24] MEDS: BENZTROPINE MESYLATE 1 MG TAB PO SCH ×2 (08:10→21:12)
[2017-02-24] MEDS: PROPRANOLOL 10 MG TAB PO SCH ×2 (08:11→21:12)
[2017-02-24] MEDS: DOCUSATE 100 MG CAP PO SCH ×2 (08:11→21:13)
--- NOTE | 2017-02-24 17:20 | P.PN ---
Progress Note - Text DATE OF SERVICE: 02/24/2017 CHIEF COMPLAINT: The patient was admitted due to driving erratically, so organized thoughts and behavior, delusions, responding to hallucinations, and confusion. INTERVAL HISTORY: The patient has been doing fair. He seems to be making progress. He continues to show psychotic symptoms where he will make references to delusional ideas. He feels his medications have been helping him and says that he feels his thoughts are clearer. He attended groups yesterday and was a generally appropriate. Today he has been sleeping quite a bit and has not attended groups. Vital signs have been stable today. He hasn't had change in his general health. He tolerates his psychotropic medications. MENTAL STATUS EXAM: The patient gave fair eye contact. Psychomotor activity was a little restless. Answered questions with direct responses. At times his answers were somewhat tangential. The most part he stayed on track. His affect was a little constricted. He had a quiet mood. He did not appear to be distressed. ASSESSMENT: I will continue the current diagnosis and treatment plan. I will continue psychotropic medications the same. A Depakote level will be drawn in the morning. We will continue to focus on stabilization and discharge planning. My understanding is that the patient will be due for a Haldol decanoate injection early in the week.
[2017-02-24] MEDS: DIVALPROEX ER 500 MG TAB.ER.24H PO SCH (21:12)
[2017-02-25] MEDS: NICOTINE 14MG/24HR PATCH TRANSDERM SCH (08:54)
[2017-02-25] MEDS: BENZTROPINE MESYLATE 1 MG TAB PO SCH ×2 (08:56→20:44)
[2017-02-25] MEDS: PROPRANOLOL 10 MG TAB PO SCH ×2 (08:56→20:45)
[2017-02-25] MEDS: DOCUSATE 100 MG CAP PO SCH ×2 (08:56→20:45)
--- NOTE | 2017-02-25 13:08 | P.PN ---
Progress Note - Text Interval history: Patient is seen in cross coverage today for Dr. Crocker. He seems to be compliant with the psychotropic medications. He related that he does take a monthly injection. He does not know when the next one is due. He has not seen voice any current adverse psychotropic medication side effects. He makes reference to working for the [employer] and also being in the [employer]. He would like me to watch a documentary regarding psychotropic medications. Mental status exam: He is alert and cooperative with the interview. His affect overall is restricted. Overall he seems to report feeling better. He denies any thoughts of harm to self or others. He does not verbalize any hallucinations. He does make reference to working for the [employer] and also being in the [employer]. No evidence of any agitation. Plan: We'll maintain current psychotropic medication regimen. Continue to monitor for any medication side effects and monitor his ongoing response. We will need to look into when he is due for his next monthly injection. Continue to cover this patient for Dr. Crocker through the weekend.
[2017-02-25] MEDS: DIVALPROEX ER 500 MG TAB.ER.24H PO SCH (20:44)
[2017-02-26] MEDS: PROPRANOLOL 10 MG TAB PO SCH ×2 (08:44→19:59)
[2017-02-26] MEDS: NICOTINE 14MG/24HR PATCH TRANSDERM SCH (08:44)
[2017-02-26] MEDS: DOCUSATE 100 MG CAP PO SCH ×2 (08:44→20:00)
[2017-02-26] MEDS: BENZTROPINE MESYLATE 1 MG TAB PO SCH ×2 (08:44→19:59)
--- NOTE | 2017-02-26 14:52 | P.PN ---
Progress Note - Text Interval history: Patient reports that he was feeling tired earlier today but now feels more awake. he did have lunch. He does not seem to voice any adverse psychotropic medication side effects. It is noted that his Depakote levels in therapeutic range. She does feel like his mood is doing better today. He is seen in cross coverage today for Dr. Crocker. Mental status exam: He is alert and cooperative with the interview. Speech is fluent, not rapid or pressured. Thought processes are organized. He does not make any delusional statements today. He does not verbalize any hallucinations. He denies any thoughts of harm to self or others. He does not present with any agitation. Plan: Maintain current psychotropic medications. Dr. Crocker to resume care this patient starting tomorrow. Continue to monitor for any medication side effects.
[2017-02-26] MEDS: DIVALPROEX ER 500 MG TAB.ER.24H PO SCH (19:59)
[2017-02-27] MEDS: BENZTROPINE MESYLATE 1 MG TAB PO SCH ×2 (08:00→22:10)
[2017-02-27] MEDS: NICOTINE 14MG/24HR PATCH TRANSDERM SCH (08:00)
[2017-02-27] MEDS: PROPRANOLOL 10 MG TAB PO SCH ×2 (08:01→22:10)
[2017-02-27] MEDS: DOCUSATE 100 MG CAP PO SCH ×2 (08:01→22:11)
--- NOTE | 2017-02-27 15:19 | P.PN ---
Progress Note - Text INTERVERAL HISTORY: Discussed patient at treatment team meeting, review of chart , met with patient. No problems reported by staff, no inappropriate behavior, no intrusiveness. SW spoke to father again, who states he knows that his son would never drive his car and he was having mental problems. Today patient was in groups, appropriate, attentive. Patient is sleeping well. Has not been loud, but continues with psychotic, delusional material. He continues with psychotic behavior, there has not been loud or aggressive behavior. He is tolerating Depakote. EKG done x 3 WNL. Laboratory Tests 02/25/17 08:49 Valproic Acid 78.2 MENTAL STATUS EXAM: awake and alert and oriented to person, place, February,. Pleasant, cooperative Speech is normal volume, rate and production, no pressured speech Goal directed TP, no loose association, no flight of ideas. Mood neutral, affect constricted No suicidal ideation IMPRESSIONS: Patient with schizoaffective disorder bipolar, manic with psychosis , now resolved. 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 No suicidal ideation, no homicidal ideation, no racial ideation themes. No evidence of EPS, tardive dyskinesia. EKG is WNL Has tolerated the Haldol Dec IM 100mg, with improvement. Schizoaffective disorder, bipolar, MRE manic, psychotic, resolved Noncompliance with care Cannabis use disorder, moderate R/O Hallucinogenic use PLAN:Continue inpatient psychiatric hospitalization for safety and treatment. Haldol and Ativan PRN agitation, Cogentin PO, Discharge tomorrow, father will come for family meeting. Outpatient care has been arranged, appointment on Mon.
[2017-02-27] MEDS: DIVALPROEX ER 500 MG TAB.ER.24H PO SCH (22:10)
[2017-02-28 06:49] VITALS: TEMP 98.2
[2017-02-28] MEDS: NICOTINE 14MG/24HR PATCH TRANSDERM SCH (09:36)
[2017-02-28] MEDS: PROPRANOLOL 10 MG TAB PO SCH (09:38)
[2017-02-28] MEDS: BENZTROPINE MESYLATE 1 MG TAB PO SCH (09:38)
[2017-02-28] MEDS: DOCUSATE 100 MG CAP PO SCH (09:38)
[2017-02-28 09:40] VITALS: BP 131/98; PULSE 104; RESP 16
--- NOTE | 2017-02-28 10:09 | P.DS ---
Providers Date of admission: 02/15/17 15:45 Expected date of discharge: 02/28/17 Attending physician: Veena Crocker MD Consults: 02/15/17 16:02 Consult Physician Routine Consulting Provider: Carol Castellanos Consult Reason/Comments: follow up H & P Do you want consulting provider notified?: Yes Primary care physician: Stated None Hospital Course: BRIEF ADMISSION HISTORY: The patient patient was noted to be driving erratically police stopped him, patient was unable to make any sense they petitioned and brought him in. He continued to have difficulty in the emergency room unable to make sense people were reporting that he was trying to hand something to them but there was nothing in his hand. He was speaking about Arjun can candy covered raindrops. He was eventually admitted to our unit after there were no beds found in [facility]. Patient has a history of schizophrenia versus schizoaffective disorder bipolar type, father reports that he has been off of his meds for 2 months now. Father also reported that he had taken a vacation and gone to [place] and was also admitted there. Father reports patient takes Depakote amlodipine and an injection. Patient has already required 2 doses of Geodon 20 mg IM and 2 doses of Ativan 1 mg each. Today he came out of his room with soap on his face stating that he is God, he was in the dining christian and he was observed by account underwriter that he was talking loudly but not threatening anybody. HOSPITAL COURSE: It was understood from the father that the patient had been on Invega IM from the [place] hospitalization and had not had it for 2 months. We started oral paliperidone, and then in 2 days the long-acting paliperidone. We restarted his Depakote. Patient continued to be loud manic needing one to one staffing. This went on for approximately a week having to use PRN medications primarily Haldol IM and Ativan IM after 8 days of no improvement on paliperidone I discussed with pharmacy if it was possible to use Haldol IM since we also had the long-acting already. I had his EKG done there was no evidence of QTC prolongation so gave him 100 mg IM of Haldol Decanoate. We also gave him Haldol by mouth for several days after about the fourth day he began to show improvement and we were able to remove one to one. 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 We attempted to get from the family a baseline of how the patient is father was unable. Patient has now had several days of being able to manage himself he goes to the dining room on his own he showers on his own, and although again he still has some delusions he is not overtly psychotic nor is his behavior dangerous. We discussed discharge with his father who agreed that he would come up and pick him up. silo worker has been able to get an appointment with his psychiatrist on Monday. Patient will need 100 mg Haldol D IM on March 23, patient will also be given a prescription for the Haldol D.Will also give him a prescription for Haldol 2 mg by mouth for anxiety agitation. Continue Depakote 1500 mg at bedtime. Patient is not suicidal, there is no homicidal ideation. He is stable for discharge Laboratory Tests 02/25/17 08:49 Valproic Acid 78.2 Schizoaffective disorder, bipolar, MRE manic, psychotic Noncompliance with care Cannabis use disorder, moderate R/O Hallucinogenic use Pertinent Studies: none Procedures: EKGs were done on daily basis during cross over treatment from Invega IM to Haldol Decanoate. QTc was WNL at all times. No evidence of prolongation. Plan - Discharge Summary New Discharge Prescriptions: New Benztropine Mesylate [Cogentin] 2 mg PO DAILY #60 tab Benztropine Mesylate [Cogentin] 3 mg PO HS #90 tab Divalproex ER [Depakote ER] 1,500 mg PO HS #90 tab Haloperidol [Haldol] 2 mg PO QID PRN #30 tab PRN Reason: Agitation Or Acute Psychosis Continue Propranolol [Inderal] 10 mg PO BID #60 Discharge Medication List Benztropine Mesylate [Cogentin] 2 mg PO DAILY #60 tab 02/28/17 [Rx] Benztropine Mesylate [Cogentin] 3 mg PO HS #90 tab 02/28/17 [Rx] Divalproex ER [Depakote ER] 1,500 mg PO HS #90 tab 02/28/17 [Rx] Haloperidol [Haldol] 2 mg PO QID PRN #30 tab 02/28/17 [Rx] Propranolol [Inderal] 10 mg PO BID #60 02/28/17 [Rx] Follow up Appointment(s)/Referral(s): Intake, intake [Other] - 03/01/17 10:00 am (Intake 03/01/17 at 10:00 am) None,Stated [Primary Care Provider] - 1-2 days Discharge Disposition: HOME SELF-CARE
== END 2017-02-28 14:46 | disposition home or self-care (01) | DRG 885 ==
LOC: EC 21:35 → 3MHU 02-15 15:45
PROVIDERS: ADMIT Psychiatry & Neurology Addiction Medicine; ATTEND Psychiatry & Neurology Addiction Medicine
DX: F25.0 Schizoaffective disorder, bipolar type (principal); F23 Brief psychotic disorder; N18.3 Chronic kidney disease, stage 3 (moderate); I10 Essential (primary) hypertension; F12.20 Cannabis dependence, uncomplicated; J45.909 Unspecified asthma, uncomplicated; E66.9 Obesity, unspecified; N28.9 Disorder of kidney and ureter, unspecified; F16.90 Hallucinogen use, unspecified, uncomplicated; Z79.899 Other long term (current) drug therapy; Z91.19 Patient's noncompliance with other medical treatment and regimen; Z91.15 Patient's noncompliance with renal dialysis; Z82.49 Family history of ischemic heart disease and other diseases of the circulatory system
CPT/HCPCS: 36415; 80053; 80164; 80306; 81003; 82075; 84443; 85025; 93005; 96372; 99285